=== PATIENT | female | born 2000 | race Caucasian/White ===

== ENCOUNTER 2022-06-04 02:46 | Emergency (ER) | payer BC ==
[~2022-06-04] VITALS: Ht 170.2 cm; Wt 59.1 kg
[2022-06-04 02:51] VITALS: BP 107/77
== END 2022-06-04 10:14 | disposition left against medical advice (07) ==
LOC: ER 02:47
DX: R19.7 Diarrhea, unspecified (principal); Z53.21 Procedure and treatment not carried out due to patient leaving prior to being seen by health care provider